=== PATIENT | female | born 1985 | race African-American/Black ===

== ENCOUNTER 2019-01-22 12:49 | Emergency (ER) | payer OTHER ==
[~2019-01-22] VITALS: Ht 172.7 cm; Wt 56.7 kg
[~2019-01-22 12:49] MED LIST: APAP500 PO; CALCIUM 500 +1 EAC5 PO; DERMOPLAST SPRA56 ML; IBUPROFEN 800800 M1 PO; LANOLIN56 GM; PRENATAL PO; TUCKS MEDICATE1 EAC1; hydrocortisone 1%
[2019-01-22 13:00] VITALS: BP 127/71
[2019-01-22] MEDS ORDERED: NAPROSYN500 MG PO (13:32)
[2019-01-22] MEDS ORDERED: AMOXICILLIN 50500 MG PO (13:32)
== END 2019-01-22 13:45 | disposition home or self-care (01) ==
LOC: ER 12:49
DX: K05.10 Chronic gingivitis, plaque induced (principal); K65.9 Peritonitis, unspecified